=== PATIENT | male | born 1940 | race Caucasian/White ===

== ENCOUNTER → 2017-06-23 | Outpatient (CLI) | payer OTHER ==
[~2017-06-23] MED LIST: ADULT LOW DOSE81 MG PO; CIPRO500 M1 PO; CIPROFLOXACIN500 M1 PO; DIGOXIN250 MCG PO; ELIQUIS5 MG PO; FISH OIL500 M1 PO; GLUCOPHAGE1000 MG PO; IBUPROFEN 800800 M1 PO; LASIX 40 MG TAB40 M2 PO; LIPITOR20 MG PO; LISINOPRIL10 MG PO; NIASPAN ER 101000 M1 PO; NORCO 7.5-3251 EACH PO; OMEPRAZOLE40 MG PO; PREDNISONE 10 M10 MG PO; TOBRADEX EYE DRO5 ML OPHTHALMIC; TOPROL XL100 MG PO; VICODIN 5-5001 EACH PO; XARELTO20 MG PO
== END ==
LOC: M.ULTRA 10:53
DX: N28.1 Cyst of kidney, acquired (principal); N20.0 Calculus of kidney; N28.9 Disorder of kidney and ureter, unspecified; N40.1 Benign prostatic hyperplasia with lower urinary tract symptoms; E11.9 Type 2 diabetes mellitus without complications

== ENCOUNTER → 2017-07-21 | Outpatient (CLI) | payer OTHER | LOC: M.ULTRA 06-24 14:11 → M.NUC 07-19 12:00 → M.ULTRA 10:37 → M.NUC 12:00 | DX: R63.4 Abnormal weight loss (principal); R10.9 Unspecified abdominal pain; R11.0 Nausea; R63.0 Anorexia; R68.81 Early satiety ==

== ENCOUNTER → 2017-08-12 | Outpatient (CLI) | payer OTHER | LOC: M.MRI 07:46 | DX: K83.8 Other specified diseases of biliary tract (principal); R63.4 Abnormal weight loss ==

== ENCOUNTER → 2017-09-01 | Day surgery (SDC) | payer OTHER ==
[2017-09-01 11:20] LABS: HEMATOCRIT 34.5 % (42.0-52.0); HEMOGLOBIN 11.3 gm/dL (14.0-18.0); MCH 29.9 pg (26.0-34.0); MCHC 32.8 g/dL (28.0-37.0); MCV 91.2 fL (80.0-100.0); MPV 9.6 fl. (7.2-11.1); NUCLEATED RBCS 0 /100WBC; PLATELET COUNT* 180 thou/uL (150-400); RBC 3.78 mil/uL (4.50-6.00); RDW-CV 14.5 % (10.5-14.5); WBC 10.8 thou/uL (4.0-11.0)
[2017-09-01 11:27] LABS: CALCIUM 9.7 mg/dL (8.5-10.1); CREATININE 1.2 mg/dL (0.6-1.3); POTASSIUM 4.6 mmol/L (3.5-5.1)
[2017-09-01 11:28] LABS: INR 1.2; PROTIME 11.2 Seconds (9.20-11.50)
[2017-09-01 11:32] LABS: ALBUMIN 3.5 g/dL (3.4-5.0); TOTAL BILIRUBIN 0.9 mg/dL (<0.1-1.0); TOTAL PROTEIN 7.7 g/dL (6.4-8.2)
[2017-09-01 11:42] LABS: ABSOLUTE BASOPHILS 0.1 thou/uL (0.0-0.2); ABSOLUTE EOSINOPHILS 1.5 thou/uL (0.0-0.7); ABSOLUTE LYMPHOCYTES 1.5 thou/uL (0.8-5.3); ABSOLUTE MONOCYTES 0.3 thou/uL (0.0-1.2); ABSOLUTE NEUTROPHILS 7.3 thou/uL (1.6-8.1); PLATELET ESTIMATE ADEQUATE
[2017-09-01 11:43] LABS: CLUMPED PLTS OCCASIONAL
== END | disposition home or self-care (01) ==
LOC: M.SUR 06:53
PROVIDERS: Internal Medicine Gastroenterology
DX: K80.50 Calculus of bile duct without cholangitis or cholecystitis without obstruction (principal); K26.3 Acute duodenal ulcer without hemorrhage or perforation; I25.10 Atherosclerotic heart disease of native coronary artery without angina pectoris; I10 Essential (primary) hypertension; I48.91 Unspecified atrial fibrillation; E11.9 Type 2 diabetes mellitus without complications; E78.5 Hyperlipidemia, unspecified; Z88.8 Allergy status to other drugs, medicaments and biological substances; Z79.82 Long term (current) use of aspirin; Z86.73 Personal history of transient ischemic attack (TIA), and cerebral infarction without residual deficits; Z79.899 Other long term (current) drug therapy; Z95.1 Presence of aortocoronary bypass graft

== ENCOUNTER 2019-12-29 12:37 | Emergency (ER) | payer MEDICARE ==
[~2019-12-29] VITALS: Ht 185.4 cm; Wt 86.2 kg
[2019-12-29 14:18] VITALS: BP 135/70
== END 2019-12-29 14:19 | disposition home or self-care (01) ==
LOC: M.ERS 12:37
DX: S51.012A Laceration without foreign body of left elbow, initial encounter (principal); I10 Essential (primary) hypertension; I48.91 Unspecified atrial fibrillation; E78.00 Pure hypercholesterolemia, unspecified; Z86.73 Personal history of transient ischemic attack (TIA), and cerebral infarction without residual deficits; Z88.8 Allergy status to other drugs, medicaments and biological substances; W01.0XXA Fall on same level from slipping, tripping and stumbling without subsequent striking against object, initial encounter; Y93.89 Activity, other specified; Y92.89 Other specified places as the place of occurrence of the external cause; Y99.8 Other external cause status

== ENCOUNTER 2020-07-01 16:21 | Emergency (ER) | payer OTHER ==
[~2020-07-01] VITALS: Ht 185.4 cm; Wt 93.0 kg
[2020-07-01 16:41] LABS: ABSOLUTE BASOPHILS 0.1 thou/uL (0.0-0.2); ABSOLUTE EOSINOPHILS 0.8 thou/uL (0.0-0.7); ABSOLUTE LYMPHOCYTES 1.5 thou/uL (0.8-5.3); ABSOLUTE MONOCYTES 0.9 thou/uL (0.0-1.2); ABSOLUTE NEUTROPHILS 5.3 thou/uL (1.6-8.1); BASOPHILS 0.9 %; EOSINOPHILS 8.9 %; HEMATOCRIT 32.5 % (42.0-52.0); HEMOGLOBIN 10.8 gm/dL (14.0-18.0); LYMPHOCYTES 17.8 %; MCH 30.8 pg (26.0-34.0); MCHC 33.3 g/dL (28.0-37.0); MCV 92.4 fL (80.0-100.0); MONOCYTES 10.6 %; NUCLEATED RBCS 0 /100WBC; PLATELET COUNT* 123 thou/uL (150-400); POLYS 61.8 %; RBC 3.52 mil/uL (4.50-6.00); WBC 8.5 thou/uL (4.0-11.0)
[2020-07-01 16:50] LABS: CALCIUM 8.7 mg/dL (8.5-10.1); CREATININE 1.4 mg/dL (0.6-1.3)
[2020-07-01 16:52] LABS: APTT 27.7 Seconds (25.0-31.3); INR 1.2; PROTIME 12.4 Seconds (9.20-11.50)
[2020-07-01 17:00] LABS: ALBUMIN 3.5 g/dL (3.4-5.0); TOTAL BILIRUBIN 0.5 mg/dL (<0.1-1.0); TOTAL PROTEIN 6.5 g/dL (6.4-8.2)
[2020-07-01 17:24] VITALS: BP 141/61
--- NOTE | 2020-07-02 16:29 | EKG ---
[place] [address] ELECTROCARDIOGRAM REPORT Name: VONNIE MARTINEZ Room: [facility]#: [id number] Admission: 07/01/20 Attend Phys: Discharge: 07/01/20 Date of : 36 Date of Service: 07/01/20 1625 Report #: [id number] THIS REPORT FOR: //name// [facility] ED Test Date: 2020-07-01 Test Time: 16:25:45 Pat Name: VONNIE MARTINEZ Department: Room: Gender: Professional Nursing Tutor: : 1940 Requested By: Edward Daley Order Number: [id number] MD: David Fernandez Measurements Intervals [place] Rate: 76 P: OR: QRS: 57 QRSD: 98 T: 7 QT: 388 QTc: 437 Interpretive Statements Atrial fibrillation Baseline wander in lead(s) V5 Compared to ECG 06/06/2017 13:51:48 No significant changes Electronically Signed On 07-02-2020 16:29:49 OPERATIONS MGR by David Fernandez [email or web address] <ELECTRONICALLY SIGNED> By: David Fernandez MD, [facility] 07/02/20 1629 1625 1625 David Fernandez MD, [facility] /EPI
== END 2020-07-01 17:26 | disposition home or self-care (01) ==
LOC: M.ERS 16:21
PROVIDERS: Family Medicine
DX: R55 Syncope and collapse (principal); I10 Essential (primary) hypertension; E78.5 Hyperlipidemia, unspecified; E11.9 Type 2 diabetes mellitus without complications; Z79.899 Other long term (current) drug therapy; Z88.8 Allergy status to other drugs, medicaments and biological substances